=== PATIENT | male | born 1960 ===

== ENCOUNTER 2020-05-04 12:41 | Emergency (ER) | payer OTHER ==
[~2020-05-04] VITALS: Ht 190.5 cm; Wt 171.5 kg
[2020-05-04] MEDS ORDERED: METFORMIN HCL1000 M2 (13:11)
== END 2020-05-04 20:36 | disposition home or self-care (01) ==
LOC: ER 12:41
DX: K29.60 Other gastritis without bleeding (principal); E11.43 Type 2 diabetes mellitus with diabetic autonomic (poly)neuropathy; K31.84 Gastroparesis; E11.65 Type 2 diabetes mellitus with hyperglycemia; Z03.818 Encounter for observation for suspected exposure to other biological agents ruled out; Z79.84 Long term (current) use of oral hypoglycemic drugs